=== PATIENT | female | born 1995 | race African-American/Black ===

== ENCOUNTER 2018-11-20 09:41 | Emergency (ER) | payer MEDICAID ==
[~2018-11-20] VITALS: Ht 162.6 cm; Wt 120.5 kg
[2018-11-20] MEDS ORDERED: KETOROLAC TROMETHAMINE 60 MG/2 ML VIAL IM ONE (11:45)
[2018-11-20] MEDS ORDERED: OxyCODONE HCL/ACETAMINOPHEN 5-325 MG TABLET PO ONE (11:45)
[2018-11-20 12:13] VITALS: BP 120/77
== END 2018-11-20 12:34 | disposition home or self-care (01) ==
LOC: EMS 09:42
DX: M76.62 Achilles tendinitis, left leg (principal); M25.572 Pain in left ankle and joints of left foot
CPT/HCPCS: 29515; 73610; 73630; 96372; 99283; J1885

== ENCOUNTER 2024-06-19 20:09 | Emergency (ER) | payer MEDICAID, OTHER ==
[~2024-06-19] VITALS: Ht 165.1 cm; Wt 111.4 kg
[2024-06-19 20:16] VITALS: TEMP 98.3
[2024-06-19 20:35] LABS: COVID AG,FIA SOURCE NASAL SWAB
[2024-06-19 20:53] LABS: SARS-COV2 (COVID) ANTIGEN,FIA Negative (Negative)
[2024-06-19 20:55] LABS: INFLUENZA TYPE A NEGATIVE FOR TYPE A (NEGATIVE); INFLUENZA TYPE B NEGATIVE FOR TYPE B (NEGATIVE)
[2024-06-19 22:43] VITALS: BP 138/81; PULSE 86; RESP 18; O2SAT 99
[2024-06-19] MEDS ORDERED: PSEU120T61 PO (22:48)
[2024-06-19] MEDS ORDERED: AZIT250T9 PO (22:48)
== END 2024-06-19 23:04 | disposition home or self-care (01) ==
LOC: EMS 20:09
DX: J01.90 Acute sinusitis, unspecified (principal); Z20.822 Contact with and (suspected) exposure to COVID-19
CPT/HCPCS: 87804; 99283

== ENCOUNTER 2025-01-10 15:45 | Emergency (ER) | payer OTHER ==
[~2025-01-10] VITALS: Ht 165.1 cm; Wt 120.5 kg
[~2025-01-10 15:45] MED LIST: PSEU120T61 PO
[2025-01-10 15:50] VITALS: BP 145/98; PULSE 85; RESP 18; TEMP 98.1; O2SAT 96
[2025-01-10 16:45] LABS: COVID AG,FIA SOURCE NASAL SWAB
[2025-01-10 17:06] LABS: SARS-COV2 (COVID) ANTIGEN,FIA Negative (Negative)
[2025-01-10] MEDS ORDERED: ZOLPIDEM TARTRATE 10 MG TABLET PO PRN (17:45)
== END 2025-01-10 19:07 | disposition left against medical advice (07) ==
LOC: EMS 15:49
DX: F32.A Depression, unspecified (principal); Z20.822 Contact with and (suspected) exposure to COVID-19
CPT/HCPCS: 99283